=== PATIENT | female | born 1970 | race American Indian/Alaskan Native ===

== ENCOUNTER 2016-12-21 08:43 | Outpatient (CLI) | payer OTHER ==
[2016-12-21] MEDS ORDERED: PROVENTIL IH ONE (10:27)
== END 2016-12-21 08:44 | disposition home or self-care (01) ==
LOC: PF 08:43
PROVIDERS: ATTEND Internal Medicine
DX: J45.909 Unspecified asthma, uncomplicated (principal); F32.9 Major depressive disorder, single episode, unspecified; F41.9 Anxiety disorder, unspecified; G43.909 Migraine, unspecified, not intractable, without status migrainosus; S39.92XA Unspecified injury of lower back, initial encounter; X58.XXXA Exposure to other specified factors, initial encounter; Y93.89 Activity, other specified; Y92.89 Other specified places as the place of occurrence of the external cause; Y99.8 Other external cause status
CPT/HCPCS: 94060; 94640

== ENCOUNTER 2018-07-27 04:12 | Emergency (ER) | payer MEDICAID ==
[2018-07-27 04:47] LABS: Bilirubin,Urine NEG (Negative); Blood,Urine NEG (Negative); Color,Urine Yellow (Yellow); Protein,Urine <15 mg/dL mg/dL (Negative)
[2018-07-27 04:47] LABS: Basophils % (Auto) 0.4 % (0.0-1.8); Eosinophils # (Auto) 0.1 K/mm3 (0.0-0.4); Eosinophils % (Auto) 1.9 % (0.0-4.3); Hematocrit 40.9 % (30.3-42.9); Hemoglobin 13.8 gm/dl (10.1-14.3); Lymphocytes # (Auto) 2.8 K/mm3 (1.2-5.4); Lymphocytes % (Auto) 44.3 % (13.4-35.0); Mean Corpuscular HGB Conc 34 % (30-34); Mean Corpuscular Volume 89 fl (79-97); Monocytes # (Auto) 0.5 K/mm3 (0.0-0.8); Monocytes % (Auto) 8.4 % (0.0-7.3); Platelet Count 166 K/mm3 (140-440); Red Blood Count 4.59 M/mm3 (3.65-5.03); Red Cell Distribution Width 16.2 % (13.2-15.2)
[2018-07-27 05:12] LABS: Alanine Aminotransferase 20 units/L (7-56); Albumin 3.8 g/dL (3.9-5); BUN/Creatinine Ratio 15; Blood Urea Nitrogen 12 mg/dL (7-17); Calcium 8.2 mg/dL (8.4-10.2); Hemolysis Index 3
[2018-07-27] MEDS ORDERED: CATAPRES PO ONE (07:14)
[2018-07-27] MEDS ORDERED: NORCO 10/325 PO ONE (07:38)
--- NOTE | 2018-07-27 08:19 | Emergency Department Report ---
HPI - General Chief Complaint: Headache Time Seen by Provider: 07/27/18 07:13 - HPI HPI: Patient is a 48-year-old female who comes to the ER complaining of headache and right thoracic pain. She states that the headache has been off and on for 3 days. She is tearful on exam. She also complains of right sharp thoracic pain. Pain is not of her right upper quadrant. She denies any nausea vomiting or diarrhea. Patient's heart rate is 90 and she is satting 100% on room air. She denies left-sided chest pain. She has no shortness of breath but is tachypnea with pain. She has a history of PE and is on our course. Patient denies any trauma. She denies a history of headaches. Pressure slightly elevated but patient states she is taking her blood pressure medicine she thinks this is just because of the pain. She is neurologically intact. ED Past Medical Hx - Past Medical History Previous Medical History?: Yes Hx Hypertension: Yes Hx Headaches / Migraines: Yes Hx Psychiatric Treatment: Yes (depression) Hx Asthma: Yes Additional medical history: anxiety,PE ,chronic back pain. "spot on liver". porphyria - Surgical History Past Surgical History?: Yes Additional Surgical History: carpal tunnel surgery, tubal ligation reversal - Family History Family history: no significant - Social History Smoking Status: Former Smoker Substance Use Type: Alcohol - Medications Home Medications: Home Medications Medication Instructions Recorded Confirmed Last Taken Type Sertraline [Zoloft] 200 mg PO DAILY 11/08/17 02/06/18 11/07/17 History clonazePAM [Klonopin] 1 mg PO TID 11/08/17 02/06/18 11/07/17 History traZODone [Desyrel] 100 mg PO QHS 11/08/17 02/06/18 11/06/17 History Apixaban [Eliquis] 5 mg PO BID 02/06/18 02/06/18 Unknown History Folic Acid [Folvite] 1 mg PO QDAY 02/06/18 02/06/18 Unknown History Losartan Potassium 50 mg PO DAILY 02/06/18 02/06/18 Unknown History QUEtiapine [SEROquel] 25 mg PO QAM 02/06/18 02/06/18 Unknown History buPROPion XL [Wellbutrin Xl] 150 mg PO DAILY 02/06/18 02/06/18 Unknown History Butalb/Acetaminophen/Caffeine 1 cap PO Q8HR PRN #10 cap 07/27/18 Unknown Rx [Fioricet 50-300-40 mg CAP] ED Review of Systems ROS: Stated complaint: HEADACHE PAIN RT UPPERSIDE Other details as noted in HPI Comment: All other systems reviewed and negative Physical Exam - Physical Exam Vital Signs: Vital Signs 07/27/18 07/27/18 04:13 07:25 Temperature 98.6 F Pulse Rate 91 H 81 Respiratory 18 Rate Blood Pressure 174/100 150/93 O2 Sat by Pulse 98 Oximetry Physical Exam: WDWN patient in NAD VS per RN flow sheet Alert and oriented to person, place and time. NO FOCAL NEURO DEF ON EXAM S1-S2. No S3 or S4. No systolic or diastolic murmur. No JVD. No pitting edema. Lungs clear to auscultation bilaterally anteriorly and posteriorly. Abdomen soft nontender bowel sounds X4 Moves all extremities well. Mood and affect appropriate. ED Course Vital Signs 07/27/18 07/27/18 04:13 07:25 Temperature 98.6 F Pulse Rate 91 H 81 Respiratory 18 Rate Blood Pressure 174/100 150/93 O2 Sat by Pulse 98 Oximetry ED Medical Decision Making - Lab Data Result diagrams: 07/27/18 04:19 07/27/18 04:19 - Radiology Data Radiology results: report reviewed, image reviewed - Medical Decision Making Lab Results 07/27/18 07/27/18 07/27/18 Range/Units 04:19 04:19 04:31 WBC 6.2 (4.5-11.0) K/mm3 RBC 4.59 (3.65-5.03) M/mm3 Hgb 13.8 (10.1-14.3) gm/dl Hct 40.9 (30.3-42.9) % MCV 89 (79-97) fl MCH 30 (28-32) pg MCHC 34 (30-34) % RDW 16.2 H (13.2-15.2) % Plt Count 166 (140-440) K/mm3 Lymph % (Auto) 44.3 H (13.4-35.0) % [place] % (Auto) 8.4 H (0.0-7.3) % Eos % (Auto) 1.9 (0.0-4.3) % Baso % (Auto) 0.4 (0.0-1.8) % Lymph # 2.8 (1.2-5.4) K/mm3 [place] # 0.5 (0.0-0.8) K/mm3 Eos # 0.1 (0.0-0.4) K/mm3 Baso # 0.0 (0.0-0.1) K/mm3 Seg Neutrophils % 45.0 (40.0-70.0) % Seg Neutrophils # 2.8 (1.8-7.7) K/mm3 Sodium 138 (137-145) mmol/L Potassium 3.5 L (3.6-5.0) mmol/L Chloride 103.4 (98-107) mmol/L Carbon Dioxide 22 (22-30) mmol/L Anion Gap 16 mmol/L BUN 12 (7-17) mg/dL Creatinine 0.8 (0.7-1.2) mg/dL Estimated GFR > 60 ml/min BUN/Creatinine Ratio 15 % Glucose 102 H (65-100) mg/dL Calcium 8.2 L (8.4-10.2) mg/dL Total Bilirubin 0.50 (0.1-1.2) mg/dL AST 15 (5-40) units/L ALT 20 (7-56) units/L Alkaline Phosphatase 51 (35-129) units/L Total Protein 7.1 (6.3-8.2) g/dL Albumin 3.8 L (3.9-5) g/dL Albumin/Globulin Ratio 1.2 % HCG, Qual (Negative) Urine Color Yellow (Yellow) Urine Turbidity Slightly-cloudy (Clear) Urine pH 6.0 (5.0-7.0) Ur Specific [place] 1.018 (1.003-1.030) Urine Protein <15 mg/dl (Negative) mg/dL Urine Glucose (UA) Neg (Negative) mg/dL Urine Ketones Neg (Negative) mg/dL Urine Blood Neg (Negative) Urine Nitrite Neg (Negative) Urine Bilirubin Neg (Negative) Urine Urobilinogen 4.0 (<2.0) mg/dL Ur Leukocyte Esterase Neg (Negative) Urine WBC (Auto) 1.0 (0.0-6.0) /HPF Urine RBC (Auto) 1.0 (0.0-6.0) /HPF U Epithel Cells (Auto) 3.0 (0-13.0) /HPF 07/27/18 Range/Units 04:43 WBC (4.5-11.0) K/mm3 RBC (3.65-5.03) M/mm3 Hgb (10.1-14.3) gm/dl Hct (30.3-42.9) % MCV (79-97) fl MCH (28-32) pg MCHC (30-34) % RDW (13.2-15.2) % Plt Count (140-440) K/mm3 Lymph % (Auto) (13.4-35.0) % [place] % (Auto) (0.0-7.3) % Eos % (Auto) (0.0-4.3) % Baso % (Auto) (0.0-1.8) % Lymph # (1.2-5.4) K/mm3 [place] # (0.0-0.8) K/mm3 Eos # (0.0-0.4) K/mm3 Baso # (0.0-0.1) K/mm3 Seg Neutrophils % (40.0-70.0) % Seg Neutrophils # (1.8-7.7) K/mm3 Sodium (137-145) mmol/L Potassium (3.6-5.0) mmol/L Chloride (98-107) mmol/L Carbon Dioxide (22-30) mmol/L Anion Gap mmol/L BUN (7-17) mg/dL Creatinine (0.7-1.2) mg/dL Estimated GFR ml/min BUN/Creatinine Ratio % Glucose (65-100) mg/dL Calcium (8.4-10.2) mg/dL Total Bilirubin (0.1-1.2) mg/dL AST (5-40) units/L ALT (7-56) units/L Alkaline Phosphatase (35-129) units/L Total Protein (6.3-8.2) g/dL Albumin (3.9-5) g/dL Albumin/Globulin Ratio % HCG, Qual Negative (Negative) Urine Color (Yellow) Urine Turbidity (Clear) Urine pH (5.0-7.0) Ur Specific [place] (1.003-1.030) Urine Protein (Negative) mg/dL Urine Glucose (UA) (Negative) mg/dL Urine Ketones (Negative) mg/dL Urine Blood (Negative) Urine Nitrite (Negative) Urine Bilirubin (Negative) Urine Urobilinogen (<2.0) mg/dL Ur Leukocyte Esterase (Negative) Urine WBC (Auto) (0.0-6.0) /HPF Urine RBC (Auto) (0.0-6.0) /HPF U Epithel Cells (Auto) (0-13.0) /HPF Vital Signs 07/27/18 07/27/18 07/27/18 04:13 07:25 08:57 Temperature 98.6 F Pulse Rate 91 H 83 Respiratory 18 18 Rate Blood Pressure 174/100 150/93 O2 Sat by Pulse 98 97 Oximetry 07/27/18 09:31 Temperature Pulse Rate Respiratory 18 Rate Blood Pressure O2 Sat by Pulse Oximetry CT NEG FOR PE MEDICATED FOR PAIN IN ER WITH RELIEF PT TO DC HOME WITH DC PLAN OF CARE - TO SEE PCP. TO CONTINUE HER HOME MEDS INCLUDING ELOQUIS Critical care attestation.: If time is entered above; I have spent that time in minutes in the direct care of this critically ill patient, excluding procedure time. ED Disposition Clinical Impression: Headache, Back pain, thoracic, History of pulmonary embolism Disposition: DC-01 TO HOME OR SELFCARE Is pt being admited?: No Does the pt Need Aspirin: No Condition: Stable Instructions: Acute Headache (ED) Additional Instructions: DIET TOLERATED MEDS ORDERED TODAY IN ER FOLLOW INSTRUCTIONS ON THE BOTTLE FOLLOW UP PCP WITHIN 48 HOURS TO ENSURE YOU ARE GETTING BETTER ACTIVITY TOLERATED MOTRIN OR TYLENOL FOR PAIN OR FEVER RETURN TO THE ER FOR WORSENING SYMPTOMS NOT RELIEVED BY YOUR MEDICATIONS. CONTINUE HOME MEDS FOLLOW UP PCP FOR FURTHER EVAL IF YOUR SYMPTOMS PERSIST CT SCAN AND LABS NORMAL TODAY Prescriptions: Butalb/Acetaminophen/Caffeine [Fioricet 50-300-40 mg CAP] 1 cap PO Q8HR PRN #10 cap PRN Reason: Pain , Severe (7-10) Referrals: AILYN MATUTE MD [Primary Care Provider] - 3-5 Days NIKKY NICKERSON MD [Staff Physician] - 3-5 Days Time of Disposition: 09:34
--- NOTE | 2018-07-27 09:26 | Cat Scan Report ---
CTA chest: History: Chest pain. Findings: No evidence of aneurysm or pulmonary embolism. No endobronchial or mediastinal mass. Suspicion of small sliding hiatal hernia. No pleural pericardial effusion Normal lung parenchyma. No consolidation Impression: No evidence of pulmonary embolism. No acute lung changes.
[2018-07-27 10:53] VITALS: BP 128/73
== END 2018-07-27 10:52 | disposition home or self-care (01) ==
LOC: ED 04:12
DX: G43.909 Migraine, unspecified, not intractable, without status migrainosus (principal); M54.6 Pain in thoracic spine; M54.89 Other dorsalgia; I10 Essential (primary) hypertension; F32.9 Major depressive disorder, single episode, unspecified; J45.909 Unspecified asthma, uncomplicated; F41.9 Anxiety disorder, unspecified; G89.29 Other chronic pain; Z98.51 Tubal ligation status; Z87.891 Personal history of nicotine dependence; Z98.890 Other specified postprocedural states; Z79.899 Other long term (current) drug therapy; Z88.6 Allergy status to analgesic agent; Z88.2 Allergy status to sulfonamides
CPT/HCPCS: 36415; 71275; 80053; 81001; 84703; 85025; 99284; Q9967

== ENCOUNTER 2018-12-30 18:37 | Emergency (ER) | payer MEDICAID ==
--- NOTE | 2018-12-30 19:21 | Event Note ---
ED Screening Note Date of service: 12/30/18 Time: 19:19 ED Screening Note: 48 y o female presents with knee pain s/p fall and heared a pop This initial assessment/diagnostic orders/clinical plan/treatment(s) is/are subject to change based on patients health status, clinical progression and re- assessment by fellow clinical providers in the ED. Further treatment and workup at subsequent clinical providers discretion. Patient/guardian urged not to elope from the ED as their condition may be serious if not clinically assessed and managed. Initial orders include: xr knee
[2018-12-30 19:23] VITALS: BP 126/71
--- NOTE | 2018-12-30 20:09 | XRay Report ---
LEFT KNEE 3 VIEWS INDICATION / CLINICAL INFORMATION: Left knee pain after fall. COMPARISON: None available. FINDINGS: BONES and JOINT(S): No acute fracture or subluxation. No significant arthritis. SOFT TISSUES: No significant abnormality. ADDITIONAL FINDINGS: None. IMPRESSION: No significant abnormality of the left knee. Signer Name: Nino Ayala MD Signed: 12/30/2018 8:04 PM Workstation Name: [id number]
[2018-12-30] MEDS ORDERED: HYDROcodone/ACETAMINOPHEN 5-325 MG TAB PO ONE (22:51)
[2018-12-30] MEDS ORDERED: traMADol 50 MG TAB PO ONE (23:37)
--- NOTE | 2018-12-31 00:04 | Emergency Department Report ---
<MIRANDA MAI - Last Filed: 12/31/18 00:07> ED Lower Extremity HPI - General Chief Complaint: Extremity Injury, Lower Stated Complaint: LEFT KNEE INJURY Time Seen by Provider: 12/30/18 22:01 Source: patient Mode of arrival: Wheelchair Limitations: Physical Limitation - History of Present Illness Initial Comments: pt is a as 48 y/o aaf who presents for left knee pain s/p fall and twist yesterday. pt states she was moving furniture and partner fell on her leg while trying ot move a couch. pt remain ambulatory with minimal limp. pt complains of 5/10 aching soreness. there is no swelling or deformity. There is no abrasion, laceration or bleeding. Pain is exacerbated by by weight bearing , pain is relieved by nothing. MD Complaint: knee injury Onset/Timin -: days(s) Injury: Knee: Left Type of Injury: hyperextension Place: home Severity: moderate Severity scale (0 -10): 5 Improves With: nothing Worsens With: weight bearing, palpation Context: other (twisted ) Associated Symptoms: snap/pop sensation, able to partially bear weight - Related Data Home Medications Medication Instructions Recorded Confirmed Last Taken Sertraline [Zoloft] 200 mg PO DAILY 11/08/17 02/06/18 11/07/17 clonazePAM [Klonopin] 1 mg PO TID 11/08/17 02/06/18 11/07/17 traZODone [Desyrel] 100 mg PO QHS 11/08/17 02/06/18 11/06/17 Apixaban [Eliquis] 5 mg PO BID 02/06/18 02/06/18 Unknown Folic Acid [Folvite] 1 mg PO QDAY 02/06/18 02/06/18 Unknown Losartan Potassium 50 mg PO DAILY 02/06/18 02/06/18 Unknown QUEtiapine [SEROquel] 25 mg PO QAM 02/06/18 02/06/18 Unknown buPROPion XL [Wellbutrin Xl] 150 mg PO DAILY 02/06/18 02/06/18 Unknown Previous Rx's Medication Instructions Recorded Last Taken Type Butalb/Acetaminophen/Caffeine 1 cap PO Q8HR PRN #10 cap 07/27/18 Unknown Rx [Fioricet 50-300-40 mg CAP] Acetaminophen [Acetaminophen TAB] 1,000 mg PO Q6HR PRN #30 tablet 12/31/18 Unknown Rx Cyclobenzaprine [Flexeril] 10 mg PO TID PRN #30 tablet 12/31/18 Unknown Rx Menthol/Camphor [[place] 1 applicatio TP QID PRN #1 tube 12/31/18 Unknown Rx Ointment] Allergies Allergy/AdvReac Type Severity Reaction Status Date / Time ibuprofen [From Motrin] Allergy Unknown Verified 12/30/18 18:39 Sulfa (Sulfonamide Allergy Nausea Verified 12/30/18 18:39 Antibiotics) ED Review of Systems Constitutional: denies: chills, fever Eyes: denies: eye pain, eye discharge, vision change ENT: denies: ear pain, throat pain Respiratory: denies: cough, shortness of breath, wheezing Cardiovascular: denies: chest pain, palpitations Endocrine: no symptoms reported Gastrointestinal: denies: abdominal pain, nausea, diarrhea Genitourinary: as per HPI Musculoskeletal: arthralgia, other (knee pain ) Skin: denies: rash, lesions Neurological: denies: headache, weakness, paresthesias Psychiatric: denies: anxiety, depression Hematological/Lymphatic: denies: easy bleeding, easy bruising ED Past Medical Hx - Past Medical History Hx Hypertension: Yes Hx Headaches / Migraines: Yes Hx Psychiatric Treatment: Yes (depression) Hx Asthma: Yes Additional medical history: anxiety,PE ,chronic back pain. "spot on liver" PULMONARY Embolism. porphyria - Surgical History Additional Surgical History: carpal tunnel surgery, tubal ligation reversal - Social History Smoking Status: Current Every Day Smoker Substance Use Type: None - Medications Home Medications: Home Medications Medication Instructions Recorded Confirmed Last Taken Type Sertraline [Zoloft] 200 mg PO DAILY 11/08/17 02/06/18 11/07/17 History clonazePAM [Klonopin] 1 mg PO TID 11/08/17 02/06/18 11/07/17 History traZODone [Desyrel] 100 mg PO QHS 11/08/17 02/06/18 11/06/17 History Apixaban [Eliquis] 5 mg PO BID 02/06/18 02/06/18 Unknown History Folic Acid [Folvite] 1 mg PO QDAY 02/06/18 02/06/18 Unknown History Losartan Potassium 50 mg PO DAILY 02/06/18 02/06/18 Unknown History QUEtiapine [SEROquel] 25 mg PO QAM 02/06/18 02/06/18 Unknown History buPROPion XL [Wellbutrin Xl] 150 mg PO DAILY 02/06/18 02/06/18 Unknown History Butalb/Acetaminophen/Caffeine 1 cap PO Q8HR PRN #10 cap 07/27/18 Unknown Rx [Fioricet 50-300-40 mg CAP] Acetaminophen [Acetaminophen TAB] 1,000 mg PO Q6HR PRN #30 tablet 12/31/18 Unknown Rx Cyclobenzaprine [Flexeril] 10 mg PO TID PRN #30 tablet 12/31/18 Unknown Rx Menthol/Camphor [[place] 1 applicatio TP QID PRN #1 tube 12/31/18 Unknown Rx Ointment] ED Physical Exam - General Limitations: Physical Limitation General appearance: alert, in no apparent distress - Head Head exam: Present: atraumatic, normocephalic - Eye Eye exam: Present: normal appearance, PERRL, EOMI Pupils: Present: normal accommodation - ENT ENT exam: Present: mucous membranes moist - Neck Neck exam: Present: normal inspection, full ROM. Absent: tenderness, lymphadenopathy - Respiratory Respiratory exam: Present: normal lung sounds bilaterally. Absent: respiratory distress, wheezes, stridor, chest wall tenderness - Cardiovascular Cardiovascular Exam: Present: regular rate, normal rhythm, normal heart sounds. Absent: systolic murmur, diastolic murmur, rubs, gallop - GI/Abdominal GI/Abdominal exam: Present: soft, normal bowel sounds. Absent: distended, tenderness, bruit, hernia - Rectal Rectal exam: Present: deferred - Extremities Exam Extremities exam: Present: normal inspection, full ROM, tenderness (left anterior knee ), normal capillary refill. Absent: pedal edema, joint swelling, calf tenderness - Expanded Lower Extremity Exam Left Knee exam: Present: tenderness, swelling, pain w/ pronation/supination, full knee extension. Absent: abrasion, laceration, ecchymosis, deformity, crepidus, dislocation, erythema, effusion, posterior draw sign, pain/laxity with valgus, pain/laxity with varus Lower Leg exam: Present: full ROM. Absent: tenderness Ankle exam: Present: full ROM. Absent: tenderness Foot/Toe exam: Present: full ROM. Absent: tenderness Neuro vascular tendon exam: Absent: pulse deficit, motor deficit, sensory deficit, tendon deficit Gait: Positive: observed and limited by pain - Back Exam Back exam: Present: normal inspection, full ROM. Absent: tenderness, CVA tenderness (R), CVA tenderness (L) - Neurological Exam Neurological exam: Present: alert, oriented X3, CN II-XII intact, abnormal gait (pain with ambulation ), reflexes normal. Absent: motor sensory deficit - Expanded Neurological Exam Expanded Motor strength exam: RLE: 5, LLE: 5 DTR: ankle (R): 2+, ankle (L): 2+ - Psychiatric Psychiatric exam: Present: normal affect, normal mood - Skin Skin exam: Present: warm, dry, intact, normal color. Absent: rash ED Lower Extremity MDM - Radiology Data Radiology results: report reviewed, image reviewed Ordering Physician: BRYANT ESPITIA Date of Service: 12/30/18 Procedure(s): XR knee 3V LT Accession Number(s): [id number] cc: BRYANT ESPITIA Fluoro Time In Minutes: LEFT KNEE 3 VIEWS INDICATION / CLINICAL INFORMATION: Left knee pain after fall. COMPARISON: None available. FINDINGS: BONES and JOINT(S): No acute fracture or subluxation. No significant arthritis. SOFT TISSUES: No significant abnormality. ADDITIONAL FINDINGS: None. IMPRESSION: No significant abnormality of the left knee. Signer Name: Nino Ayala MD Signed: 12/30/2018 8:04 PM Workstation Name: [id number] Transcribed By: [place] Dictated By: Nino Ayala MD Electronically Authenticated By: Nino Ayala MD Signed Date/Time: 12/30/182003 DD/ 03 TD/TT: - Medical Decision Making this is a knee strain , xray normal, plan: pilo wrap, crutches, nsaids, analgesic balm, rice therapy, follow up with orthopedics pt averbalized agreement and understanding with discharge plan. pt dc'd in stable condition at this time. pt demonstrates safe use of crutches, and pilo wrap . ED Disposition Clinical Impression: Knee sprain Qualifiers: Encounter type: initial encounter Involved ligament of knee: unspecified ligament Laterality: left Qualified Code(s): S83.92XA - Sprain of unspecified site of left knee, initial encounter Disposition: TO HOME OR SELFCARE Is pt being admited?: No Does the pt Need Aspirin: No Condition: Stable Instructions: Knee Sprain (ED), Crutch Instructions (ED), Knee Exercises (GEN), RICE Therapy (ED) Prescriptions: Acetaminophen [Acetaminophen TAB] 1,000 mg PO Q6HR PRN #30 tablet PRN Reason: pain Cyclobenzaprine [Flexeril] 10 mg PO TID PRN #30 tablet PRN Reason: Muscle Spasm Menthol/Camphor [[place] Ointment] 1 applicatio TP QID PRN #1 tube PRN Reason: pain Referrals: VALERIANO GRECO MD [Staff Physician] - 3-5 Days PRIMARY CARE, [Referring] - 3-5 Days Forms: Work/School Release Form(ED) Time of Disposition: 00:13 <PAM DOMINGUEZ P - Last Filed: 12/31/18 01:59> ED Review of Systems ROS: Stated complaint: LEFT KNEE INJURY Other details as noted in HPI ED Course Vital Signs 12/30/18 12/31/18 19:20 00:38 Temperature 983 F H Pulse Rate 90 88 Respiratory 18 18 Rate Blood Pressure 126/71 O2 Sat by Pulse 97 100 Oximetry ED Lower Extremity MDM - Medical Decision Making Attestation: Available for consultation Critical care attestation.: If time is entered above; I have spent that time in minutes in the direct care of this critically ill patient, excluding procedure time. ED Disposition Is pt being admited?: No
== END 2018-12-31 00:38 | disposition home or self-care (01) ==
LOC: ED 18:37
DX: S83.92XA Sprain of unspecified site of left knee, initial encounter (principal); I10 Essential (primary) hypertension; G43.909 Migraine, unspecified, not intractable, without status migrainosus; F41.9 Anxiety disorder, unspecified; F17.200 Nicotine dependence, unspecified, uncomplicated; Z86.711 Personal history of pulmonary embolism; Z98.51 Tubal ligation status; Z88.2 Allergy status to sulfonamides; Z88.5 Allergy status to narcotic agent; Z79.899 Other long term (current) drug therapy; W01.198A Fall on same level from slipping, tripping and stumbling with subsequent striking against other object, initial encounter; Y93.89 Activity, other specified; Y92.098 Other place in other non-institutional residence as the place of occurrence of the external cause; Y99.8 Other external cause status
CPT/HCPCS: 99284

== ENCOUNTER 2021-10-11 07:57 | Emergency (ER) | payer MEDICARE ==
[2021-10-11] MEDS ORDERED: SODIUM CHLORIDE 0.9% 1000 ML 1,000 ML IV ONE (08:30)
[2021-10-11] MEDS ORDERED: ONDANSETRON 4 MG/2 ML INJ IV ONE (08:31)
[2021-10-11] MEDS ORDERED: MORPHINE 4 MG/1 ML INJ IV ONE ×2 (08:31→12:26)
--- NOTE | 2021-10-11 09:12 | XRay Report ---
CHEST 1 VIEW 10/11/2021 8:03 AM INDICATION / CLINICAL INFORMATION: Dyspnea. COMPARISON: 11/06/2017 FINDINGS: SUPPORT DEVICES: None. HEART / MEDIASTINUM: No significant abnormality. LUNGS / PLEURA: No significant pulmonary or pleural abnormality. No pneumothorax. ADDITIONAL FINDINGS: No significant additional findings. IMPRESSION: 1. No acute findings. Signer Name: Fox Gilliam MD Signed: 10/11/2021 9:08 AM Workstation Name: [email or web address]
[2021-10-11 09:22] LABS: Color,Urine Straw (Yellow)
[2021-10-11 09:23] LABS: Bacteria,Urine 1+ /HPF (Negative); WBC,Urine < 1.0 /HPF (0.0-6.0)
[2021-10-11 09:25] LABS: Amphetamine Screen,Urine Negative; Benzodiazepines Screen,Urine Negative; Cannabinoid Screen,Urine Negative; Cocaine Screen,Urine Negative; Methadone Screen,Urine Negative; Opiate Screen,Urine Negative
[2021-10-11 10:27] LABS: Basophils % (Auto) 0.3 % (0.0-1.8); Eosinophils # (Auto) 0.1 K/mm3 (0.0-0.4); Eosinophils % (Auto) 1.7 % (0.0-4.3); Hematocrit 42.7 % (30.3-42.9); Hemoglobin 14.3 gm/dl (10.1-14.3); Lymphocytes # (Auto) 1.5 K/mm3 (1.2-5.4); Lymphocytes % (Auto) 37.8 % (13.4-35.0); Mean Corpuscular HGB Conc 33 % (30-34); Mean Corpuscular Volume 89 fl (79-97); Monocytes # (Auto) 0.5 K/mm3 (0.0-0.8); Monocytes % (Auto) 12.3 % (0.0-7.3); Red Blood Count 4.78 M/mm3 (3.65-5.03); Red Cell Distribution Width 14.7 % (13.2-15.2)
[2021-10-11 10:41] LABS: Creatine Kinase MB 1.1 ng/mL (0.0-4.0)
[2021-10-11 10:43] LABS: Alanine Aminotransferase 16 units/L (7-56); Albumin 4.4 g/dL (3.9-5); Blood Urea Nitrogen 11 mg/dL (7-17); Calcium 9.2 mg/dL (8.4-10.2); Hemolysis Index 10
[2021-10-11 10:45] LABS: BUN/Creatinine Ratio 16
[2021-10-11 11:10] LABS: Platelet Count 108 K/mm3 (140-440)
[2021-10-11 11:12] LABS: INR 0.92 (0.87-1.13)
--- NOTE | 2021-10-11 11:24 | Cat Scan Report ---
CTA CHEST WITH CONTRAST INDICATION / CLINICAL INFORMATION: SOB. TECHNIQUE: Axial CT images were obtained through the chest after injection of IV contrast. 3 plane PR P and/or 3D reconstructions were produced. All CT scans at this location are performed using CT dose reduction for ALARA by means of automated exposure control. COMPARISON: CTA chest dated 07/27/2018 FINDINGS: PULMONARY EMBOLUS: None. THORACIC AORTA: No significant abnormality. HEART: No significant abnormality. CORONARY ARTERY CALCIFICATION: Absent -- None. MEDIASTINUM / LUPE: No significant abnormality. PLEURA: No pleural effusion. No pneumothorax. LUNGS: No acute air space or interstitial disease. ADDITIONAL FINDINGS: None. UPPER ABDOMEN: Adenomatous hyperplasia of the adrenal glands. Punctate nonobstructing left upper pole renal calculus. SKELETAL STRUCTURES: No significant osseous abnormality. IMPRESSION: 1. No CT evidence for pulmonary embolism. 2. No acute findings. Signer Name: Fox Gilliam MD Signed: 10/11/2021 11:19 AM Workstation Name: [email or web address]
--- NOTE | 2021-10-11 12:29 | Emergency Department Report ---
ED Shortness of Breath HPI - General Chief Complaint: Dyspnea/Respdistress Stated Complaint: RIGHT BACK PAIN , JENNIFER Time Seen by Provider: 10/11/21 08:26 Source: patient Mode of arrival: Ambulatory Limitations: No Limitations - History of Present Illness Initial Comments: BACK PAIN AND DIFFICULTY BREATHING. STARTED 2 DASY AGO. 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 MARQUEZ Complaint: shortness of breath, chest pain -: Gradual, days(s) Consistency: intermittent Improves With: nothing Worsens With: nothing Associated Symptoms: chest pain, pain with inspiration Treatments Prior to Arrival: none - Related Data Home Oxygen Therapy: No Home Medications Medication Instructions Recorded Confirmed Last Taken Sertraline [Zoloft] 200 mg PO DAILY 11/08/17 02/06/18 11/07/17 clonazePAM [Klonopin] 1 mg PO TID 11/08/17 02/06/18 11/07/17 traZODone [Desyrel] 100 mg PO QHS 11/08/17 02/06/18 11/06/17 Apixaban [Eliquis] 5 mg PO BID 02/06/18 02/06/18 Unknown Folic Acid [Folvite] 1 mg PO QDAY 02/06/18 02/06/18 Unknown Losartan Potassium 50 mg PO DAILY 02/06/18 02/06/18 Unknown QUEtiapine [SEROquel] 25 mg PO QAM 02/06/18 02/06/18 Unknown buPROPion XL [Wellbutrin Xl] 150 mg PO DAILY 02/06/18 02/06/18 Unknown Previous Rx's Medication Instructions Recorded Last Taken Type Butalb/Acetaminophen/Caffeine 1 cap PO Q8HR PRN #10 cap 07/27/18 Unknown Rx [Fioricet 50-300-40 mg CAP] Acetaminophen [Acetaminophen TAB] 1,000 mg PO Q6HR PRN #30 tablet 12/31/18 Unknown Rx Cyclobenzaprine [Flexeril] 10 mg PO TID PRN #30 tablet 12/31/18 Unknown Rx Menthol/Camphor [[place] 1 applicatio TP QID PRN #1 tube 12/31/18 Unknown Rx Ointment] Allergies Allergy/AdvReac Type Severity Reaction Status Date / Time ibuprofen [From Motrin] Allergy Unknown Verified 10/11/21 07:58 Sulfa (Sulfonamide Allergy Nausea Verified 10/11/21 07:58 Antibiotics) ED Review of Systems ROS: Stated complaint: RIGHT BACK PAIN , JENNIFER Other details as noted in HPI Constitutional: denies: chills, fever Eyes: denies: eye pain, eye discharge, vision change ENT: denies: ear pain, throat pain Respiratory: denies: cough, shortness of breath, wheezing Cardiovascular: denies: chest pain, palpitations Endocrine: no symptoms reported Gastrointestinal: denies: abdominal pain, nausea, diarrhea Genitourinary: denies: urgency, dysuria, discharge Musculoskeletal: denies: back pain, joint swelling, arthralgia Skin: denies: rash, lesions Neurological: denies: headache, weakness, paresthesias Psychiatric: denies: anxiety, depression Hematological/Lymphatic: denies: easy bleeding, easy bruising ED Past Medical Hx - Past Medical History Hx Hypertension: Yes Hx Headaches / Migraines: Yes Hx Psychiatric Treatment: Yes (depression) Hx Asthma: Yes Additional medical history: anxiety,PE ,chronic back pain. "spot on liver" PULMONARY Embolism. porphyria - Surgical History Additional Surgical History: carpal tunnel surgery, tubal ligation reversal - Social History Smoking Status: Current Every Day Smoker Substance Use Type: Other - Medications Home Medications: Home Medications Medication Instructions Recorded Confirmed Last Taken Type Sertraline [Zoloft] 200 mg PO DAILY 11/08/17 02/06/18 11/07/17 History clonazePAM [Klonopin] 1 mg PO TID 11/08/17 02/06/18 11/07/17 History traZODone [Desyrel] 100 mg PO QHS 11/08/17 02/06/18 11/06/17 History Apixaban [Eliquis] 5 mg PO BID 02/06/18 02/06/18 Unknown History Folic Acid [Folvite] 1 mg PO QDAY 02/06/18 02/06/18 Unknown History Losartan Potassium 50 mg PO DAILY 02/06/18 02/06/18 Unknown History QUEtiapine [SEROquel] 25 mg PO QAM 02/06/18 02/06/18 Unknown History buPROPion XL [Wellbutrin Xl] 150 mg PO DAILY 02/06/18 02/06/18 Unknown History Butalb/Acetaminophen/Caffeine 1 cap PO Q8HR PRN #10 cap 07/27/18 Unknown Rx [Fioricet 50-300-40 mg CAP] Acetaminophen [Acetaminophen TAB] 1,000 mg PO Q6HR PRN #30 tablet 12/31/18 Unknown Rx Cyclobenzaprine [Flexeril] 10 mg PO TID PRN #30 tablet 12/31/18 Unknown Rx Menthol/Camphor [[place] 1 applicatio TP QID PRN #1 tube 12/31/18 Unknown Rx Ointment] ED Physical Exam - General Limitations: No Limitations General appearance: alert, in no apparent distress - Head Head exam: Present: atraumatic, normocephalic - Eye Eye exam: Present: normal appearance - ENT ENT exam: Present: mucous membranes moist - Neck Neck exam: Present: normal inspection - Respiratory Respiratory exam: Present: normal lung sounds bilaterally. Absent: respiratory distress - Cardiovascular Cardiovascular Exam: Present: regular rate, normal rhythm. Absent: systolic murmur, diastolic murmur, rubs, gallop - GI/Abdominal GI/Abdominal exam: Present: soft, tenderness, normal bowel sounds - Extremities Exam Extremities exam: Present: normal inspection - Back Exam Back exam: Present: normal inspection - Neurological Exam Neurological exam: Present: alert, oriented X3 - Psychiatric Psychiatric exam: Present: normal affect, normal mood - Skin Skin exam: Present: warm, dry, intact, normal color. Absent: rash ED Course Vital Signs 10/11/21 10/11/21 07:59 10:07 Temperature 98.7 F Pulse Rate 99 H Respiratory 24 20 Rate Blood Pressure 148/82 [Right] O2 Sat by Pulse 98 98 Oximetry ED Medical Decision Making - Lab Data Result diagrams: 10/11/21 09:15 10/11/21 09:15 - EKG Data -: EKG Interpreted by Co EKG shows normal: sinus rhythm - EKG Data Interpretation: no acute changes - Radiology Data Radiology results: report reviewed, image reviewed - Medical Decision Making work up negative vss , painc ontrolled CTA negative Critical care attestation.: If time is entered above; I have spent that time in minutes in the direct care of this critically ill patient, excluding procedure time. ED Disposition Clinical Impression: Flank pain, acute Disposition: 01 HOME / SELF CARE / HOMELESS Is pt being admited?: No Does the pt Need Aspirin: No Condition: Stable Instructions: Flank Pain, Adult, [id number], Flank Pain, Adult Referrals: PRIMARY CARE,MD [Primary Care Provider] - 3-5 Days
[2021-10-11 13:01] VITALS: BP 118/61
--- NOTE | 2021-10-13 16:47 | Electrocardiograph Report ---
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
== END 2021-10-11 12:49 | disposition home or self-care (01) ==
LOC: ED 07:57
DX: R10.9 Unspecified abdominal pain (principal); R06.02 Shortness of breath; R07.89 Other chest pain; I10 Essential (primary) hypertension; G43.909 Migraine, unspecified, not intractable, without status migrainosus; F32.9 Major depressive disorder, single episode, unspecified; F17.200 Nicotine dependence, unspecified, uncomplicated; Z98.51 Tubal ligation status; Z79.899 Other long term (current) drug therapy; Z88.6 Allergy status to analgesic agent; Z88.2 Allergy status to sulfonamides
CPT/HCPCS: 36415; 71045; 71275; 80053; 80307; 81001; 82550; 82553; 83690; 84484; 85025; 85610; 93005; 96361; 96374; 96375; 99284; J2270; J2405; J7030; Q9967